=== PATIENT | female | born 1980 | race African-American/Black ===

== ENCOUNTER 2024-01-20 19:33 | Emergency (ER) | payer OTHER ==
[~2024-01-20] VITALS: Ht 167.6 cm; Wt 122.5 kg
[2024-01-20 19:58] VITALS: BP 150/86; PULSE 96; RESP 18; TEMP 98.2; O2SAT 99
[2024-01-20] MEDS ORDERED: AMOX1TAB8 PO (20:33)
[2024-01-20] MEDS ORDERED: IBUP-2213 PO (20:33)
[2024-01-20] MEDS ORDERED: BENZ-300 PO (20:33)
[2024-01-20] MEDS: DEXAMETHASONE 10 MG/ML VIAL IM ONE (21:06)
[2024-01-20] MEDS: KETOROLAC 30 MG/ML VIAL IM ONE (21:07)
[2024-01-20] MEDS: cefTRIAXone 500 MG in LIDOCAINE MPF 1% 1 ML IM ONE (21:07)
== END 2024-01-20 20:55 | disposition left against medical advice (07) ==
LOC: MED 19:33
DX: J36 Peritonsillar abscess (principal); Z79.899 Other long term (current) drug therapy
CPT/HCPCS: 99283